=== PATIENT | female | born 1945 | race Caucasian/White ===

== ENCOUNTER 2016-05-20 07:59 | Day surgery (SDC) | payer MEDICARE, BC ==
[~2016-05-20 07:59] MED LIST: Lactated Ringers 1,000 ML IV SCH
[2016-05-20] MEDS ORDERED: Propofol 200 MG/20 ML SDV ONE (08:53)
[2016-05-20 09:57] VITALS: BP 119/61
--- NOTE | 2016-05-20 10:21 | OR ---
CHIEF COMPLAINT: Abdominal pain, change in bowel pattern. POSTOPERATIVE DIAGNOSIS: Moderate sigmoid diverticulosis, otherwise normal exam. PROCEDURE PROPOSED: Total flexible colonoscopy with multiple random biopsies. PROCEDURE DONE: Total flexible colonoscopy with multiple random biopsies. INDICATION: This is a 70-year-old female, bothered with diffuse abdominal pain; oscillation between constipation and diarrhea and has not been colonoscoped for about 13 years. It is felt that she needs to have that evaluated. TECHNIQUE: The patient was brought to the endoscopy suite, placed in the left lateral decubitus position. She was sedated per [employer]PATIENT SERVICES with propofol. The flexible video colonoscope was then passed transanally, and under visualization advanced to the cecum. Examination revealed a normal ascending, transverse, and descending colon. Sigmoid colon revealed moderate diverticulosis, some of which were quite large and multiple diverticula were plugged with stool. The rectum was normal. Multiple random biopsies were taken from all levels of the colon, totaling about 14 biopsies. She tolerated the procedure well as the scope was then withdrawn. IMPRESSION: 1. Sigmoid diverticulosis. Otherwise normal exam. 2. Probable irritable bowel syndrome. PLAN: I have recommended that she take Metamucil on a regular basis to regulate her stools, 1 tablespoon daily. I will send her a letter with the pathology report on the biopsies. SCM: 05/20/2016 09:45:17 MODL: 05/20/2016 10:15:12 /[id number]
== END 2016-05-20 10:40 | disposition home or self-care (01) ==
LOC: VM.SDS 07:59
PROVIDERS: ATTEND Surgery
DX: K57.30 Diverticulosis of large intestine without perforation or abscess without bleeding (principal); E11.22 Type 2 diabetes mellitus with diabetic chronic kidney disease; I12.9 Hypertensive chronic kidney disease with stage 1 through stage 4 chronic kidney disease, or unspecified chronic kidney disease; F41.8 Other specified anxiety disorders; Z88.8 Allergy status to other drugs, medicaments and biological substances; Z90.49 Acquired absence of other specified parts of digestive tract; Z90.710 Acquired absence of both cervix and uterus; Z98.890 Other specified postprocedural states; Z79.899 Other long term (current) drug therapy; Z79.4 Long term (current) use of insulin; N18.3 Chronic kidney disease, stage 3 (moderate); E66.01 Morbid (severe) obesity due to excess calories; Z68.41 Body mass index [BMI] 40.0-44.9, adult
CPT/HCPCS: 00810; 45380; 82962; J2704; J7120; 88305

== ENCOUNTER 2017-09-13 13:40 | Emergency (ER) | payer MEDICARE, BC, MEDICAID ==
[2017-09-13] MEDS ORDERED: Sodium Chloride 0.9% 10 ML Syringe FLUSH PRN (13:47)
--- NOTE | 2017-09-13 13:54 | EDM.PDOC ---
ED HPI GENERAL MEDICAL PROBLEM - General Chief Complaint: Cardiovascular Problem Stated Complaint: Possible PE Time Seen by Provider: 09/13/17 13:45 Source of Information: Reports: Patient, RN, RN Notes Reviewed History Limitations: Reports: No Limitations - History of Present Illness INITIAL COMMENTS - FREE TEXT/NARRATIVE: Patient is brought to the ED at [facility] from our Radiology lab after she had a CT of Lungs for follow up lung nodule. After the scan was completed, it appeared the patient may have a possible PE. Patient was brought to the ER for further workup. Patient denies any chest pain. She has chronic SOB and orthopnea. No increase in leg swelling. No head ache or dizziness. Patient does not feel lightheaded. Patient states she started having a non-productive cough a couple of night ago. She was having the CT scan done for routine monitoring of her lung nodule. - Related Data Allergies Allergy/AdvReac Type Severity Reaction Status Date / Time cerivastatin sodium AdvReac Muscle Verified 09/13/17 14:15 [From [facility]] Aches metformin AdvReac Nausea and Verified 09/13/17 14:15 Vomiting Home Meds: Home Meds Aspirin 325 mg PO DAILY 08/16/14 [History] Cholecalciferol (Vitamin D3) [Vitamin D-3] 1,000 unit PO DAILY 08/16/14 [History ] Clobetasol [Clobetasol Propionate 0.05%] 30 gm TOP BID PRN 08/16/14 [History] Diclofenac Sodium [Diclofenac Sodium ER] 100 mg PO DAILY 08/16/14 [History] Furosemide 10 mg PO DAILY 08/16/14 [History] Hydrochlorothiazide 25 mg PO DAILY 08/16/14 [History] Insulin Aspart [NovoLOG] 10 unit SQ BIDMEALS 08/16/14 [History] Insulin Isophane NPH, Human [NovoLIN N] 20 unit SQ QPM 08/16/14 [History] Insulin Isophane NPH, Human [NovoLIN N] 32 unit SQ QAM 08/16/14 [History] Lisinopril 40 mg PO DAILY 08/16/14 [History] Metoprolol Succinate [Toprol XL] 37.5 tab PO DAILY 08/16/14 [History] Omeprazole 20 mg PO DAILY 08/16/14 [History] Sertraline [Zoloft] 50 mg PO DAILY 08/16/14 [History] atorvaSTATin [Lipitor] 20 mg PO BEDTIME 08/16/14 [History] Docusate Sodium [Colace] 100 mg PO DAILY 05/17/16 [History] Levothyroxine 75 mcg PO ACBREAKFAST 05/17/16 [History] Past Medical History HEENT History: Reports: Cataract Other HEENT History: presbyopia. cysts of eyelids. vitreous degeneration. difficult intubation Cardiovascular History: Reports: Blood Clots/VTE/DVT, Heart Failure, High Cholesterol, Hypertension Other Cardiovascular History: edema. nonspecific abnormal ECG Other Respiratory History: lung nodule Gastrointestinal History: Reports: Diverticulosis, GERD Genitourinary History: Reports: Renal Disease Other Genitourinary History: ovarian cyst. bilateral fibrocystic breast disease Musculoskeletal History: Reports: Fracture, Osteoarthritis Other Musculoskeletal History: pelvic mass. unsteady gait. lipoma. carpel tunnel Neurological History: Reports: Neuropathy, Diabetic Other Neuro History: tremulousness Psychiatric History: Reports: Anxiety, Depression Other Psychiatric History: obesity Endocrine/Metabolic History: Reports: Diabetes, Type II, Hypothyroidism Other Hematologic History: vitamin D deficiency Immunologic History: Reports: None Oncologic (Cancer) History: Reports: None Dermatologic History: Reports: Scleroderma - Past Surgical History Head Surgeries/Procedures: Reports: None HEENT Surgical History: Reports: Adenoidectomy, Tonsillectomy GI Surgical History: Reports: Cholecystectomy, Colonoscopy ED ROS GENERAL - Review of Systems Review Of Systems: See Below Constitutional: Denies: Fever, Chills, Weakness Respiratory: Reports: Shortness of Breath (chronic), Cough (non-productive) Cardiovascular: Reports: Orthopnea (chronic). Denies: Chest Pain, Palpitations GI/Abdominal: Denies: Abdominal Pain, Nausea, Vomiting Skin: Reports: No Symptoms Neurological: Reports: No Symptoms. Denies: Dizziness, Headache ED EXAM, GENERAL - Physical Exam Exam: See Below Exam Limited By: No Limitations General Appearance: Alert, No Apparent Distress Respiratory/Chest: No Respiratory Distress, Lungs Clear, Normal Breath Sounds Cardiovascular: Normal Peripheral Pulses, Regular Rate, Rhythm Peripheral Pulses: 2+: Radial (L), Radial (R) GI/Abdominal: Normal Bowel Sounds, Soft, Non-Tender Extremities: Normal Inspection, Pedal Edema (trace) Neurological: Alert, Oriented Skin Exam: Warm, Dry, Intact, Normal Color EKG INTERPRETATION EKG Date: 09/13/17 Time: 13:59 Rhythm: NSR Rate (Beats/Min): 73 [place]: Normal P-Wave: Present QRS: Normal ST-T: Normal QT: Normal SD/PQ Interval: 0.18 Comparison: NA - No Prior EKG EKG Interpretation Comments: 1. Sinus Rhythm 2. Normal ECG Course - Vital Signs Last Recorded V/S: Last Vital Signs Temp 37.0 C 09/13/17 13:40 Pulse 78 09/13/17 13:40 Resp 20 09/13/17 13:40 BP 167/75 H 09/13/17 13:40 Pulse Ox 96 09/13/17 13:40 - Orders/Labs/Meds Orders: Active Orders 24 hr Category Date Time Status EKG 12 Lead [EKG Documentation Completion] [RC] STAT Care 09/13/17 13:46 Active Heparin Sodium/0.45% NaCl [Heparin 25,000 Units in 1/2 Med 09/13/17 15:00 Active NS 500 ML] 25,000 units in 500 ml IV TITRATE Sodium Chloride 0.9% [Normal Saline] 1,000 ml Med 09/13/17 14:15 Active IV ASDIRECTED Sodium Chloride 0.9% [Saline Flush] Med 09/13/17 13:47 Active 10 ml FLUSH ASDIRECTED PRN Peripheral IV Insertion Adult [OM.PC] Routine Oth 09/13/17 13:47 Ordered Medication Orders Sodium Chloride (Normal Saline) 1,000 mls @ 50 mls/hr IV ASDIRECTED LOYD Last Admin: 09/13/17 14:08 Dose: 50 mls/hr Heparin Sodium/Sodium Chloride (Heparin 25,000 Units In 1/2 Ns 500 Ml) 25,000 units in 500 mls @ 18 mls/hr IV TITRATE LOYD; Protocol Sodium Chloride (Saline Flush) 10 ml FLUSH ASDIRECTED PRN PRN Reason: Keep Vein Open Labs: Laboratory Tests 09/13/17 09/13/17 09/13/17 Range/Units 14:00 14:00 14:00 WBC 8.4 (4.0-10.0) x10^3/uL RBC 4.46 (4.00-5.50) x10^6/uL Hgb 13.4 (12.0-16.0) g/dL Hct 40.5 (33.0-47.0) % MCV 90.8 (78.0-93.0) fL MCH 30.0 (26.0-32.0) pg MCHC 33.1 (32.0-36.0) g/dL RDW Coeff of Esteban 13.5 (10.0-15.0) % Plt Count 245 (130-400) x10^3/uL Neut % (Auto) 64.4 (50.0-80.0) % Lymph % (Auto) 24.1 L (25.0-50.0) % [place] % (Auto) 9.3 (2.0-11.0) % Eos % (Auto) 1.7 (0.0-4.0) % Baso % (Auto) 0.5 (0.2-1.2) % PT 9.5 L (9.6-11.4) SEC INR 0.9 L (2.0-3.5) D-Dimer, Quantitative 14.64 H (<=0.58) mg/LFEU Sodium 137 (136-145) mmol/L Potassium 4.6 (3.5-5.1) mmol/L Chloride 105 (98-107) mmol/L Carbon Dioxide 28 (21-32) mmol/L Anion Gap 8.6 L (10-20) mmol/L BUN 26 H (7-18) mg/dL Creatinine 1.2 H (0.55-1.02) mg/dL Est Cr Clr Drug Dosing 29.99 mL/min Estimated GFR (MDRD) 44 Glucose 74 (74-106) mg/dL Calcium 8.7 (8.5-10.1) mg/dL Corrected Calcium 9.34 (8.5-10.1) mg/dL Total Bilirubin 0.4 (0.2-1.0) mg/dL AST 15 (15-37) U/L ALT 21 (14-59) U/L Alkaline Phosphatase 102 (46-116) U/L Creatine Kinase 79 (26-192) U/L Troponin I < 0.017 (<=0.056) ng/mL Total Protein 7.1 (6.4-8.2) g/dL Albumin 3.2 L (3.4-5.0) g/dL Globulin 3.9 Albumin/Globulin Ratio 0.82 Meds: Medications Generic Name Dose Route Start Last Admin Trade Name Freq PRN Reason Stop Dose Admin Sodium Chloride 1,000 mls @ 50 mls/hr 09/13/17 14:15 09/13/17 14:08 Normal Saline IV 50 mls/hr ASDIRECTED LYOD Administration Heparin Sodium/Sodium Chloride 25,000 units in 500 mls @ 18 mls/hr 09/13/17 15 :00 Heparin 25,000 Units In 1/2 Ns 500 Ml IV TITRATE LOYD Protocol 900 UNITS/HR Sodium Chloride 10 ml 09/13/17 13:47 Saline Flush FLUSH ASDIRECTED PRN Keep Vein Open Discontinued Medications Generic Name Dose Route Start Last Admin Trade Name Freq PRN Reason Stop Dose Admin Heparin Sodium (Porcine) 5,000 units 09/13/17 14:45 Heparin Sodium IVPUSH 09/13/17 14:46 ONETIME ONE Sodium Chloride 1,000 mls @ 999 mls/hr 09/13/17 13:47 09/13/17 14:05 Normal Saline IV 09/13/17 14:47 999 mls/hr ONETIME ONE Administration - Radiology Interpretation Free Text/Narrative:: CT Chest w/contrast: No obvious pulmonary parenchymal nodule seen; Large right- sided PE; See scanned report in EMR CT Results Date: 09/13/17 CT Results Time: 14:14 Departure - Departure Time of Disposition: 14:59 Disposition: DC/Tfer to [facility] Reason for Transfer *Q: Other Condition: Good Clinical Impression: Pulmonary embolism Qualifiers: Pulmonary embolism type: other Chronicity: acute Acute cor pulmonale presence: without acute cor pulmonale Qualified Code(s): I26.99 - Other pulmonary embolism without acute cor pulmonale Forms: Interfacility Transfer [facility] ED Communication - ED Communication Date/Time Date: 09/13/17 Time Called: 14:46 - Discussed Case With (1) Discussed Case With (1): Admitting Provider (Dr. Moore, ) - Conversation Summary Admitting Provider Agreed to Patient's Admission: Yes Patient Aware of Amendments fo Care Plan: Yes - Problem List Review Problem List Initiated/Reviewed/Updated: Yes - My Orders Last 24 Hours: My Active Orders 09/13/17 13:46 EKG 12 Lead [EKG Documentation Completion] [RC] STAT 09/13/17 13:47 Sodium Chloride 0.9% [Saline Flush] 10 ml FLUSH ASDIRECTED PRN Peripheral IV Insertion Adult [OM.PC] Routine 09/13/17 14:15 Sodium Chloride 0.9% [Normal Saline] 1,000 ml IV ASDIRECTED 09/13/17 15:00 Heparin Sodium/0.45% NaCl [Heparin 25,000 Units in 1/2 NS 500 ML] 25,000 units in 500 ml IV TITRATE - Assessment/Plan Last 24 Hours: My Active Orders 09/13/17 13:46 EKG 12 Lead [EKG Documentation Completion] [RC] STAT 09/13/17 13:47 Sodium Chloride 0.9% [Saline Flush] 10 ml FLUSH ASDIRECTED PRN Peripheral IV Insertion Adult [OM.PC] Routine 09/13/17 14:15 Sodium Chloride 0.9% [Normal Saline] 1,000 ml IV ASDIRECTED 09/13/17 15:00 Heparin Sodium/0.45% NaCl [Heparin 25,000 Units in 1/2 NS 500 ML] 25,000 units in 500 ml IV TITRATE Assessment:: Right Pulm Artery PE Plan: Case discussed with Dr. Moore, IM. Report given and patient accepted in transfer. Patient will be sent via ALS ground.
[2017-09-13] MEDS: Sodium Chloride 0.9% 1,000 ML IV ONE (14:05)
[2017-09-13] MEDS: Sodium Chloride 0.9% 1,000 ML IV SCH (14:08)
[2017-09-13 14:23] VITALS: BP 167/75
[2017-09-13 14:35] LABS: CHLORIDE,CL 105 mmol/L (98-107); SODIUM,NA 137 mmol/L (136-145)
[2017-09-13 14:41] LABS: ANION GAP 8.6 mmol/L (10-20)
[2017-09-13] MEDS: Heparin Sodium 5,000 Units/ML Vial IVPUSH ONE (14:52)
[2017-09-13] MEDS: Heparin Sodium/0.45% NaCl 25,000 UNITS/500 ML BAG IV SCH (14:54)
== END 2017-09-13 15:25 | disposition short-term general hospital (02) ==
LOC: VM.ED 13:40
DX: I26.99 Other pulmonary embolism without acute cor pulmonale (principal); I11.0 Hypertensive heart disease with heart failure; I50.9 Heart failure, unspecified; E11.40 Type 2 diabetes mellitus with diabetic neuropathy, unspecified; E03.9 Hypothyroidism, unspecified; K21.9 Gastro-esophageal reflux disease without esophagitis; M19.90 Unspecified osteoarthritis, unspecified site; E78.00 Pure hypercholesterolemia, unspecified; F41.9 Anxiety disorder, unspecified; F32.9 Major depressive disorder, single episode, unspecified; Z79.899 Other long term (current) drug therapy; Z79.4 Long term (current) use of insulin; Z79.82 Long term (current) use of aspirin; Z88.8 Allergy status to other drugs, medicaments and biological substances
CPT/HCPCS: 36415; 80053; 82550; 84484; 85025; 85379; 85610; 93005; 96361; 96365; 96376; 99285; J1644; J7030; 93010

== ENCOUNTER 2023-11-06 11:31 | Emergency (ER) | payer MEDICARE, MEDICAID ==
[2023-11-06 15:11] VITALS: PULSE 89
[2023-11-06 15:19] VITALS: BP 144/70
== END 2023-11-06 13:35 | disposition home or self-care (01) ==
LOC: VM.ED 11:31
DX: S61.012A Laceration without foreign body of left thumb without damage to nail, initial encounter (principal); I11.0 Hypertensive heart disease with heart failure; I50.9 Heart failure, unspecified; E78.00 Pure hypercholesterolemia, unspecified; K21.9 Gastro-esophageal reflux disease without esophagitis; E11.9 Type 2 diabetes mellitus without complications; E03.9 Hypothyroidism, unspecified; Z79.899 Other long term (current) drug therapy; Z79.4 Long term (current) use of insulin; Z79.82 Long term (current) use of aspirin; Z88.8 Allergy status to other drugs, medicaments and biological substances; Z79.01 Long term (current) use of anticoagulants; W25.XXXA Contact with sharp glass, initial encounter
CPT/HCPCS: 99282

== ENCOUNTER 2024-06-03 11:00 | Emergency (ER) | payer MEDICARE, MEDICAID ==
[2024-06-03] MEDS ORDERED: Sodium Chloride 0.9% 10 ML Syringe FLUSH PRN (11:35)
[2024-06-03 11:41] LABS: BASOPHILS PERCENT AUTO 0.2 % (0.2-1.2); EOSINOPHILS ABSOLUTE AUTO 0.1 x10^3/uL (0.0-0.5); EOSINOPHILS PERCENT AUTO 0.6 % (0.0-4.0); HEMOGLOBIN 13.7 g/dL (12.0-16.0); IMMATURE GRAN ABSOLUTE AUTO 0.02 x10^3/uL (0.00-0.07); LYMPHOCYTES ABSOLUTE AUTO 1.3 x10^3/uL (1.0-4.8); LYMPHOCYTES PERCENT AUTO 12.5 % (25.0-50.0); MEAN CORPUSCULAR HEMOGLOBIN 30.6 pg (26.0-32.0); MEAN CORPUSCULAR HGB CONC 33.4 g/dL (32.0-36.0); MEAN CORPUSCULAR VOLUME 91.5 fL (78.0-93.0); MONOCYTES ABSOLUTE AUTO 0.9 x10^3/uL (0.0-0.8); MONOCYTES PERCENT AUTO 8.4 % (2.0-11.0); NEUTROPHILS ABSOLUTE AUTO 7.9 x10^3/uL (1.8-7.7); NEUTROPHILS PERCENT AUTO 78.1 % (50.0-80.0); PLATELET COUNT,PLT 203 x10^3/uL (130-400); RED BLOOD CELL COUNT 4.48 x10^6/uL (4.00-5.50); WHITE BLOOD CELL COUNT,WBC 10.1 x10^3/uL (4.0-10.0)
[2024-06-03 12:00] LABS: APPEARANCE,URINE CLEAR (CLEAR); BILIRUBIN,URINE NEGATIVE (NEGATIVE); COLOR,URINE YELLOW (YELLOW); GLUCOSE,URINE 100 mg/dL (NEGATIVE); KETONES,URINE NEGATIVE (NEGATIVE); LEUKOCYTE ESTERASE,URINE NEGATIVE (NEGATIVE); NITRITE,URINE POSITIVE (NEGATIVE); OCCULT BLOOD,URINE TRACE-LYSED (NEGATIVE); PH,URINE 5.5 (5.0-8.0); PROTEIN,URINE NEGATIVE (NEGATIVE)
[2024-06-03 12:00] LABS: A/G RATIO 0.77; ALANINE AMINOTRANSFERASE,ALT 19 U/L (14-59); ALKALINE PHOSPHATASE 87 U/L (46-116); ASPARTATE AMNIOTRANSFERASE,AST 18 U/L (15-37); BILIRUBIN TOTAL 1.1 mg/dL (0.2-1.0); BLOOD UREA NITROGEN,BUN 23 mg/dL (7-18); C-REACTIVE PROTEIN 6.88 mg/dL (<=0.50); CALCIUM 8.6 mg/dL (8.5-10.1); CARBON DIOXIDE,CO2 30 mmol/L (21-32); CHLORIDE,CL 101 mmol/L (98-107); CREATININE 1.2 mg/dL (0.55-1.02); GLUCOSE RANDOM 277 mg/dL (70-99); LIPASE 24 U/L (19-71); MAGNESIUM 1.7 mg/dL (1.8-2.4); POTASSIUM,K 4.3 mmol/L (3.5-5.1); PROTEIN TOTAL,TP 6.9 g/dL (6.4-8.2); SODIUM,NA 138 mmol/L (136-145)
[2024-06-03 12:02] LABS: ANION GAP 11.3 mmol/L (5-15); ESTIMATED GFR 46 mL/min (>=60)
[2024-06-03 12:03] LABS: LACTIC ACID 1.1 mmol/L (0.4-2.0)
[2024-06-03 12:08] LABS: RBC,URINE 0-5 /HPF (NOT SEEN); WBC,URINE 0-5 /HPF (NOT SEEN)
[2024-06-03 12:09] LABS: BACTERIA,URINE MODERATE /HPF (NOT SEEN); SQUAMOUS EPITHELIAL CELLS,UR FEW /HPF (NOT SEEN)
[2024-06-03] MEDS: cefTRIAXone 1 GM Vial IVPUSH ONE (12:34)
[2024-06-03] MEDS: Iopamidol 612 MG/ML 100 ML Bottle IVPUSH ONE (13:17)
[2024-06-03 14:44] VITALS: BP 158/56; PULSE 76
== END 2024-06-03 14:37 | disposition home or self-care (01) ==
LOC: VM.ED 11:00
DX: K57.32 Diverticulitis of large intestine without perforation or abscess without bleeding (principal); N39.0 Urinary tract infection, site not specified; I11.0 Hypertensive heart disease with heart failure; I50.9 Heart failure, unspecified; E78.00 Pure hypercholesterolemia, unspecified; E11.9 Type 2 diabetes mellitus without complications; E03.9 Hypothyroidism, unspecified; Z88.8 Allergy status to other drugs, medicaments and biological substances; Z79.82 Long term (current) use of aspirin; Z79.899 Other long term (current) drug therapy; Z79.4 Long term (current) use of insulin; Z79.890 Hormone replacement therapy
CPT/HCPCS: 74177; 80053; 81001; 83605; 83690; 83735; 85025; 86140; 87086; 87088; 87186; 96374; 99284; 99284-25; J0696; Q9967

== ENCOUNTER 2024-07-19 08:36 | Emergency (ER) | payer MEDICARE, MEDICAID ==
[2024-07-19 09:16] VITALS: BP 162/75; PULSE 73
== END 2024-07-19 09:27 | disposition home or self-care (01) ==
LOC: VM.ED 08:36
DX: L76.22 Postprocedural hemorrhage of skin and subcutaneous tissue following other procedure (principal); I11.0 Hypertensive heart disease with heart failure; I50.9 Heart failure, unspecified; E78.00 Pure hypercholesterolemia, unspecified; K21.9 Gastro-esophageal reflux disease without esophagitis; E11.9 Type 2 diabetes mellitus without complications; E03.9 Hypothyroidism, unspecified; Z90.49 Acquired absence of other specified parts of digestive tract; Z79.4 Long term (current) use of insulin; Z79.890 Hormone replacement therapy; Z79.899 Other long term (current) drug therapy; Z88.8 Allergy status to other drugs, medicaments and biological substances
CPT/HCPCS: 99283